=== PATIENT | female | born 1960 | race Caucasian/White ===

== ENCOUNTER → 2025-01-18 13:45 | Observation (INO) ==
--- NOTE | 2025-01-16 15:28 | PCM ---
Date of Service Date Seen by Provider: 01/16/25 Time Seen by Provider: 15:30 Admit Day/Time Admission Date: 01/28/25 Admission Time: 15:22 Reason for Admission Chief Complaint: UTI Hospital Provider Hospital Provider: KRYSTIAN ADDISON PA-C, [facility] Primary Care Physician Primary Care Physician: ANDRIA CRUZ PA-C History of Present Illness History of Present Illness: Patient is a 64 year old female who presents as a direct admit from PCP Andria Cruz's office for UTI, failed outpatient antibiotic treatment. She has been dealing with UTI symptoms, was treated with bactrim. Urine culture grew e coli resistant to bactrim. She was given rocephin inj IM on 01/15 and 01/16, but continues to have flank pain, nausea, and overall not feeling well. Feels as though she's dehydrated. Has been septic in the past from UTI and patient's worried about that. Patient admitted to med surg. Case Discussed With Case Discussed With: Patient's case was discussed with PCP Andria Cruz. [facility] Medical History Kidney disease N28.9 - Disorder of kidney and ureter, unspecified (ICD-10) Pain of right shoulder joint on movement M25.511 - Pain in right shoulder (ICD-10) Right ear pain H92.01 - Otalgia, right ear (ICD-10) Tongue lesion K14.8 - Other diseases of tongue (ICD-10) Carpal tunnel syndrome, bilateral G56.03 - Carpal tunnel syndrome, bilateral upper limbs (ICD-10) Overactive bladder N32.81 - Overactive bladder (ICD-10) Surgical History H/O dilation and curettage postmenopausal bleeding Jun 2023 Z98.890 - Other specified postprocedural states (ICD-10) History of carpal tunnel release Z98.890 - Other specified postprocedural states (ICD-10) History of cholecystectomy Z90.49 - Acquired absence of other specified parts of digestive tract (ICD- 10) History of bilateral knee replacement Z96.653 - Presence of artificial knee joint, bilateral (ICD-10) Family History FATHER Colon cancer MATERNAL GRANDMOTHER Breast cancer Diabetes MATERNAL GRANDMOTHER No problems noted. Mother COPD (chronic obstructive pulmonary disease) Heart problem Family history of thyroid problem AUNT Breast cancer SISTER Family history of thyroid problem Social History Smoking and tobacco status: Never smoker Passive smoking exposure: Yes (around vapers) Second hand smoke exposure: Yes Alcohol intake: current Alcohol intake frequency: 0-2 drinks per day Counseling given: No Counseling provided: none Substance use type: does not use Rubi/pentecostalism: OTHER Household members: none Housing: house Marital status: S SINGLE Lives independently: Yes Number of children: 2 Number of grandchildren: 1 Highest education level completed: Bachelor's degree service: No [facility]: No Current occupational status: retired Pets and animals: No History of recent travel: Yes (within the [place]) Sexually active: Yes Do you think of yourself as: straight/heterosexual Current gender identity: female Seatbelt use: always Helmet use: Yes Drives intoxicated or rides with intoxicated pole truck driver: No Water heater temperature set < 120 degrees: Yes Working smoke detector in home: Yes Fire extinguisher in home: Yes Carbon monoxide detector in home: Yes Firearms in home: No Allergies Allergies Allergy/AdvReac Type Severity Reaction Status Date / Time ciprofloxacin (From Cipro) AdvReac Unknown Verified 01/16/25 14:02 Current Medications Home Medications Acetaminophen (Acetaminophen 325 Mg Tablet) 650 mg PO Q4H PRN PRN Reason: Mild Pain Last Admin: 01/17/25 02:14 Dose: 650 mg Buspirone HCl (Buspirone Hcl 10 Mg Tablet) 10 mg PO TID PRN PRN Reason: Anxiety Last Admin: 01/16/25 20:23 Dose: 10 mg CEFTRIAXONE/D5W 1 GM PREMIX (Rocephin 1 Gm/50 Ml D5w) 1 gm in 50 mls @ 100 mls/hr IV DAILY RILEY Stop: 01/20/25 08:59 Last Admin: 01/17/25 08:42 Dose: 100 mls/hr Lactated Ringer's (Lactated Ringers) 1,000 mls @ 100 mls/hr IV .Q10H [facility] Last Admin: 01/17/25 04:55 Dose: 100 mls/hr Omeprazole (Omeprazole 20 Mg Capsule.Dr) 20 mg PO QDAC2 [facility] Last Admin: 01/17/25 05:04 Dose: 20 mg Ondansetron HCl (Ondansetron Hcl/Pf 4 Mg/2 Ml Sdv) 4 mg IVP Q6H PRN PRN Reason: Nausea / Vomiting Oxybutynin Chloride (Oxybutynin Chloride 5 Mg Tablet) 5 mg PO DAILY [facility] Last Admin: 01/17/25 08:43 Dose: 5 mg Sertraline HCl (Sertraline Hcl 50 Mg Tablet) 50 mg PO DAILY [facility] Last Admin: 01/17/25 08:43 Dose: 50 mg cyclobenzaprine 10 mg tablet 10 mg PO TID PRN muscle spasm #30 tabs 05/25/23 [Rx Confirmed 01/16/25] meclizine 25 mg tablet 25 mg PO Q6-8H PRN dizziness #30 tabs 05/30/23 [Rx Confirmed 01/16/25] omeprazole 20 mg capsule,delayed release 20 mg PO QDAY #90 caps 02/08/24 [Rx Confirmed 01/16/25] rosuvastatin 10 mg tablet 10 mg PO Q OTHER DAY #90 tabs 02/18/24 [Rx Confirmed 01/16/25] Held on 08/19/24. Instructions: Adverse Reaction meloxicam 15 mg tablet See Rx Instructions .Route .COMPLEX #90 tabs 05/15/24 [Rx Confirmed 01/16/25] Held on 11/26/24. Instructions: MD Howell sertraline 50 mg tablet See Rx Instructions .Route .COMPLEX #90 tabs 05/15/24 [Rx Confirmed 01/16/25] oxybutynin chloride 5 mg tablet 5 mg PO QDAY #90 tabs 08/15/24 [Rx Confirmed 01/16/25] lisinopril 20 mg-hydrochlorothiazide 25 mg tablet 1 tab PO QDAY #90 tabs 08/19/24 [Rx Confirmed 01/16/25] phentermine 37.5 mg capsule 37.5 mg PO QDAY #30 caps 01/13/25 [Rx Confirmed 01/16/25] buspirone 10 mg tablet 10 mg PO TID PRN anxiety 01/16/25 [History Confirmed 01/16/25] Opioid Naive vs. Tolerant Does Patient Take Opioids?: No Is Patient Opioid Naive?: Yes What is Opioid Naive?: *Opioid Naive implies the patient is not already taking opioids or not chronically receiving opioids on a daily basis. *PRN dosing is not "usually" associated with tolerance. *Patients are at higher risk of over-sedation and aspiration. Is Patient Opioid Tolerant?: No What is Opioid Tolerant?: *Opioid Tolerance implies less than the expected response to an opioid. *Acquired tolerance is defined by the patient taking 60mg of oral morphine daily (or equianalgesic dose of another opioid) for 1 week or more. *Often associated with chronic pain. *May take more than usual dose to achieve desired pain control. Review of Systems Constitutional: Reports Fatigue; Denies Fever Head: Reports Normocephalic and Atraumatic Cardiovascular: Denies Chest pain, Edema or Palpitations Respiratory: Denies Cough or Shortness of air Gastrointestinal: Reports Nausea and Other; Denies Vomiting, Diarrhea or Abdominal pain Genitourinary: Reports Dysuria, Frequency and Flank Pain Neurological: Reports Headache and Dizziness; Denies Syncope Physical examination Appearance: Positive No Apparent Distress and Alert and Oriented x3 Skin: Positive [place], Warm, Good Turgor and Good Color HEENT: Positive Normocephalic and Atraumatic; Negative Oral Mucous Moist Neck: Positive Supple and Midline Trachea Chest/Lungs: Positive Clear to Auscultation Bilaterally; Negative Rales, Rhonci or Wheezes Heart: Positive RRR GI/: Positive Soft, Nontender, Bowel Sounds Normal, No Distention and Other (+marcial flank pain ) Extremities: Negative Edema Neurological: Positive Cranial Nerves Intact, Alert, Oriented and Muscle Strength 5/5 in Upper and Lower Extremities Bilaterally Psychiatric: Positive Oriented x4, Appropriate Mood and Appropriate Affect Labs This Visit Labs This Visit: Labs This Visit 01/16/25 01/17/25 15:40 05:06 WBC 9.60 6.97 RBC 4.30 3.96 L Hgb 13.0 12.0 Hct 39.8 37.6 MCV 92.6 94.9 MCH 30.2 30.3 MCHC 32.7 31.9 RDW Coeff of Isatu 13.3 13.2 Plt Count 278 222 Immature Gran % (Auto) 0.3 0.3 Neut % (Auto) 69.9 63.5 Lymph % (Auto) 21.6 27.0 [place] % (Auto) 6.7 6.9 Eos % (Auto) 0.9 1.7 Baso % (Auto) 0.6 0.6 Neut # (Auto) 6.7 4.4 Lymph # (Auto) 2.1 1.9 [place] # (Auto) 0.6 0.5 Eos # (Auto) 0.1 0.1 Baso # (Auto) 0.1 0.0 Immature Gran # (Auto) 0.0 0.0 Sodium 136.9 139.2 Potassium 4.15 4.48 Chloride 101.3 105.2 Carbon Dioxide 24.8 27.6 Anion Gap 14.95 10.88 BUN 34.6 H 29.6 H Creatinine 2.20 H 1.88 H Estimated GFR (MDRD) 22.00 27.00 BUN/Creatinine Ratio 15.72 15.74 Glucose 101.9 94.9 Lactic Acid 0.82 Calcium 9.76 9.09 Magnesium 1.89 Total Bilirubin 0.40 0.35 AST 29.5 25.1 ALT 25.9 23.6 Alkaline Phosphatase 80.6 74.3 Total Protein 7.82 6.55 Albumin 4.71 3.98 Globulin 3.11 2.57 Albumin/Globulin Ratio 1.51 1.54 Procalcitonin < 0.05 Review Statement Review Statement: I have independently reviewed and interpreted the labs/EKGs/imaging that were ordered by the ER provider. I have reviewed all outside records that are available currently in our EMR including imaging/notes/labs from previous visits. Plan Plan: 1. Acute pyelonephritis due to E coli - Failed outpatient abx. With nausea, flank pain, and evidence of UTI, meets criteria. Cont rocephin based off culture. Pain control. Fluids. LA and procal negative. 2. DUANE, stage I - Baseline Cr 1 or less. LR ordered. Hold lisinopril/hctz 3. Hypertension - hold lisinopril/hctz 4. Depression/anxiety - Cont home meds DVT Prophylaxis: Ambulation Time Spent: Greater than 80 minutes spent with patient, 50% of the time spent with this patient was devoted to counseling and coordination of care. [facility] minutes spent discussing advance care planning. Admit to: Obs Discussed Plan of Care with Dr. Nithya Blanchard. Medications Medication Orders: Medications Ordered Category Date Time Status Acetaminophen [Tylenol] Meds 01/16/25 15:22 Ordered 650 mg PO Q4H PRN Ceftriaxone/D5w 1 gm Premix [Rocephin 1 gm/50 ml D5w] Meds 01/17/25 09:00 Active 1 gm in 50 ml IV DAILY Ondansetron HCl/Pf [Zofran Sdv] Meds 01/16/25 15:22 Ordered 4 mg IVP Q6H PRN Ringers Lactated Solution [Lactated Ringers] 1,000 ml Meds 01/16/25 15:30 Active IV 100 mls/hr
[2025-01-16 15:43] LABS: IMMATURE GRANULOCYTE # (AUTO) 0.0 (0.0-1.0); IMMATURE GRANULOCYTE % (AUTO) 0.3 % (0.0-5.0); RDW COEFFICIENT OF VARIATION 13.3 % (11.6-14.8)
[2025-01-16 15:52] VITALS: BMI 42.5
[2025-01-16 15:56] LABS: CREATININE 2.2 mg/dL (0.60-1.30)
[2025-01-16] MEDS: LACTATED RINGERS 1,000 ML IV SCH (16:05)
[2025-01-16] MEDS: LACTATED RINGERS 1,000 ML IV ONE (18:00)
[2025-01-16] MEDS: TYLENOL PO PRN (18:21)
[2025-01-16] MEDS: BUSPAR PO PRN (20:23)
[2025-01-17] MEDS: PRILOSEC PO SCH (05:04)
[2025-01-17 05:30] LABS: IMMATURE GRANULOCYTE # (AUTO) 0.0 (0.0-1.0); IMMATURE GRANULOCYTE % (AUTO) 0.3 % (0.0-5.0); RDW COEFFICIENT OF VARIATION 13.2 % (11.6-14.8)
[2025-01-17 05:45] LABS: CREATININE 1.88 mg/dL (0.60-1.30)
[2025-01-17] MEDS: TORADOL IVP ONE (07:54)
[2025-01-17] MEDS: ROCEPHIN 1 GM/50 ML D5W 1 GM/50 ML BAG IV SCH (08:42)
[2025-01-17] MEDS: ZOLOFT PO SCH (08:43)
[2025-01-17] MEDS: DITROPAN PO SCH (08:43)
--- NOTE | 2025-01-17 10:52 | PCM.PROG ---
Date/Time Seen Date Seen by Provider: 01/17/25 Time Seen by Provider: 09:30 Provider Provider: [facility]STIAN ADDISON [facility]-C, [facility] Chief Complaint Chief Complaint: UTI Subjective Subjective: Patient feels better overall today. Still having some flank pain. Tolerating PO. Had a headache this AM. Cr not yet to baseline. Objective Appearance: Positive No Apparent Distress and Alert and Oriented x3 Chest/Lungs: Positive Clear to Auscultation Bilaterally; Negative Rales, Rhonci or Wheezes Heart: Positive RRR GI/: Positive Soft, Nontender, Bowel Sounds Normal, No Distention and Other (+mild marcial cva tenderness ) Neurological: Positive Cranial Nerves Intact, Alert, Oriented, Disorinted and Muscle Strength 5/5 in Upper and Lower Extremities Bilaterally Vital Signs Vital Signs: Vital Signs: Last 24 Hours 01/16/25 15:28 01/16/25 15:36 01/16/25 16:00 Temperature 97.9 F Temperature Source Oral Pulse Rate 71 Pulse Rate [Radial] Respiratory Rate 16 Blood Pressure Blood Pressure Mean Blood Pressure Left Arm 131/81 Blood Pressure Location Blood Pressure Position Sitting O2 Sat by Pulse Oximetry Oxygen Delivery Method Room Air Room Air Height 5 ft 6 in 5 ft 6 in Weight 119.6 kg 119.6 kg Telemetry Type Telemetry Monitoring Irregular Telemetry Rate (Approximate) Telemetry Heart Rate EKG OH Interval EKG QRS Interval Telemetry Strip Reading 01/16/25 16:10 01/16/25 16:29 01/16/25 17:00 Temperature Temperature Source Pulse Rate Pulse Rate [Radial] 72 Respiratory Rate 16 Blood Pressure Blood Pressure Mean Blood Pressure Left Arm Blood Pressure Location Blood Pressure Position O2 Sat by Pulse Oximetry Oxygen Delivery Method Room Air Room Air Height Weight Telemetry Type Remote Telemetry Telemetry Monitoring Started Irregular Telemetry Rate (Approximate) 60's Telemetry Heart Rate EKG OH Interval 0.16 EKG QRS Interval 0.07 Telemetry Strip Reading NSR 01/16/25 17:40 01/16/25 18:00 01/16/25 19:00 Temperature 96.9 F L Temperature Source Temporal Artery Scan Pulse Rate 72 Pulse Rate [Radial] Respiratory Rate 18 Blood Pressure 131/96 H Blood Pressure Mean 107 Blood Pressure Left Arm Blood Pressure Location Right Arm Blood Pressure Position Supine O2 Sat by Pulse Oximetry 100 Oxygen Delivery Method Room Air Room Air Room Air Height Weight Telemetry Type Telemetry Monitoring Irregular Telemetry Rate (Approximate) Telemetry Heart Rate EKG OH Interval EKG QRS Interval Telemetry Strip Reading 01/16/25 19:00 01/16/25 20:00 01/16/25 20:00 Temperature Temperature Source Pulse Rate Pulse Rate [Radial] Respiratory Rate Blood Pressure Blood Pressure Mean Blood Pressure Left Arm Blood Pressure Location Blood Pressure Position O2 Sat by Pulse Oximetry Oxygen Delivery Method Room Air Room Air Height Weight Telemetry Type Remote Telemetry Telemetry Monitoring Continues Irregular Telemetry Rate (Approximate) Telemetry Heart Rate 71 EKG OH Interval 0.17 EKG QRS Interval 0.06 Telemetry Strip Reading SR 01/16/25 20:00 01/16/25 20:48 01/16/25 21:00 Temperature 97.2 F L Temperature Source Temporal Artery Scan Pulse Rate 73 Pulse Rate [Radial] Respiratory Rate 22 H Blood Pressure 151/65 H Blood Pressure Mean 93 Blood Pressure Left Arm Blood Pressure Location Right Arm Blood Pressure Position Sitting O2 Sat by Pulse Oximetry 100 Oxygen Delivery Method Room Air Room Air Room Air Height Weight Telemetry Type Telemetry Monitoring Irregular Telemetry Rate (Approximate) Telemetry Heart Rate EKG OH Interval EKG QRS Interval Telemetry Strip Reading 01/16/25 22:00 01/16/25 23:00 01/17/25 00:00 Temperature Temperature Source Pulse Rate Pulse Rate [Radial] Respiratory Rate Blood Pressure Blood Pressure Mean Blood Pressure Left Arm Blood Pressure Location Blood Pressure Position O2 Sat by Pulse Oximetry Oxygen Delivery Method Room Air Room Air Room Air Height Weight Telemetry Type Telemetry Monitoring Irregular Telemetry Rate (Approximate) Telemetry Heart Rate EKG OH Interval EKG QRS Interval Telemetry Strip Reading 01/17/25 01:00 01/17/25 01:00 01/17/25 02:00 Temperature Temperature Source Pulse Rate Pulse Rate [Radial] Respiratory Rate Blood Pressure Blood Pressure Mean Blood Pressure Left Arm Blood Pressure Location Blood Pressure Position O2 Sat by Pulse Oximetry Oxygen Delivery Method Room Air Room Air Height Weight Telemetry Type Remote Telemetry Telemetry Monitoring Continues Irregular Telemetry Rate (Approximate) Telemetry Heart Rate 74 EKG OH Interval 0.16 EKG QRS Interval 0.06 Telemetry Strip Reading SR 01/17/25 02:00 01/17/25 03:00 01/17/25 04:00 Temperature 97.7 F Temperature Source Temporal Artery Scan Pulse Rate 63 Pulse Rate [Radial] Respiratory Rate 18 Blood Pressure 158/89 H Blood Pressure Mean 112 Blood Pressure Left Arm Blood Pressure Location Right Arm Blood Pressure Position Supine O2 Sat by Pulse Oximetry 100 Oxygen Delivery Method Room Air Room Air Room Air Height Weight Telemetry Type Telemetry Monitoring Irregular Telemetry Rate (Approximate) Telemetry Heart Rate EKG OH Interval EKG QRS Interval Telemetry Strip Reading 01/17/25 05:00 01/17/25 05:30 01/17/25 06:00 Temperature 97.3 F L Temperature Source Temporal Artery Scan Pulse Rate 71 Pulse Rate [Radial] Respiratory Rate 20 Blood Pressure 148/87 H Blood Pressure Mean 107 Blood Pressure Left Arm Blood Pressure Location Right Arm Blood Pressure Position Supine O2 Sat by Pulse Oximetry 100 Oxygen Delivery Method Room Air Room Air Room Air Height Weight Telemetry Type Telemetry Monitoring Irregular Telemetry Rate (Approximate) Telemetry Heart Rate EKG OH Interval EKG QRS Interval Telemetry Strip Reading 01/17/25 07:00 01/17/25 07:00 01/17/25 08:00 Temperature Temperature Source Pulse Rate Pulse Rate [Radial] Respiratory Rate Blood Pressure Blood Pressure Mean Blood Pressure Left Arm Blood Pressure Location Blood Pressure Position O2 Sat by Pulse Oximetry Oxygen Delivery Method Room Air Room Air Height Weight Telemetry Type Remote Telemetry Telemetry Monitoring Continues Irregular Telemetry Rate (Approximate) 60-70 BPM Telemetry Heart Rate 64 EKG OH Interval 0.17 EKG QRS Interval 0.07 Telemetry Strip Reading NSR 01/17/25 08:00 01/17/25 08:57 01/17/25 09:50 Temperature Temperature Source Pulse Rate Pulse Rate [Radial] Respiratory Rate Blood Pressure Blood Pressure Mean Blood Pressure Left Arm Blood Pressure Location Blood Pressure Position O2 Sat by Pulse Oximetry Oxygen Delivery Method Room Air Room Air Room Air Height Weight Telemetry Type Telemetry Monitoring Irregular Telemetry Rate (Approximate) Telemetry Heart Rate EKG OH Interval EKG QRS Interval Telemetry Strip Reading 01/17/25 09:50 Temperature 97.6 F Temperature Source Temporal Artery Scan Pulse Rate 64 Pulse Rate [Radial] Respiratory Rate 16 Blood Pressure 141/89 H Blood Pressure Mean 106 Blood Pressure Left Arm Blood Pressure Location Right Arm Blood Pressure Position Supine O2 Sat by Pulse Oximetry 100 Oxygen Delivery Method Room Air Height Weight Telemetry Type Telemetry Monitoring Irregular Telemetry Rate (Approximate) Telemetry Heart Rate EKG OH Interval EKG QRS Interval Telemetry Strip Reading Lab Results Lab Results: Lab Results: Last 24 Hours 01/17/25 01/16/25 05:06 15:40 WBC 6.97 9.60 RBC 3.96 L 4.30 Hgb 12.0 13.0 Hct 37.6 39.8 MCV 94.9 92.6 MCH 30.3 30.2 MCHC 31.9 32.7 RDW Coeff of Isatu 13.2 13.3 Plt Count 222 278 Immature Gran % (Auto) 0.3 0.3 Neut % (Auto) 63.5 69.9 Lymph % (Auto) 27.0 21.6 [place] % (Auto) 6.9 6.7 Eos % (Auto) 1.7 0.9 Baso % (Auto) 0.6 0.6 Neut # (Auto) 4.4 6.7 Lymph # (Auto) 1.9 2.1 [place] # (Auto) 0.5 0.6 Eos # (Auto) 0.1 0.1 Baso # (Auto) 0.0 0.1 Immature Gran # (Auto) 0.0 0.0 Sodium 139.2 136.9 Potassium 4.48 4.15 Chloride 105.2 101.3 Carbon Dioxide 27.6 24.8 Anion Gap 10.88 14.95 BUN 29.6 H 34.6 H Creatinine 1.88 H 2.20 H Estimated GFR (MDRD) 27.00 22.00 BUN/Creatinine Ratio 15.74 15.72 Glucose 94.9 101.9 Lactic Acid 0.82 Calcium 9.09 9.76 Magnesium 1.89 Total Bilirubin 0.35 0.40 AST 25.1 29.5 ALT 23.6 25.9 Alkaline Phosphatase 74.3 80.6 Total Protein 6.55 7.82 Albumin 3.98 4.71 Globulin 2.57 3.11 Albumin/Globulin Ratio 1.54 1.51 Procalcitonin < 0.05 Additional Comments Additional Comments: I have independently reviewed and interpreted the labs/EKGs/imaging ordered during this hospital stay. I have reviewed outside records that are available in our EMR that pertain to medical stay including imaging/notes/labs from previous visits. Active Medications Active Medications: Medications Generic Name Dose Route Start Last Admin Trade Name Freq PRN Reason Stop Dose Admin Acetaminophen 650 mg 01/16/25 15:22 01/17/25 02:14 Acetaminophen 325 Mg Tablet PO 650 mg Q4H PRN Administration Mild Pain Buspirone HCl 10 mg 01/16/25 16:55 01/16/25 20:23 Buspirone Hcl 10 Mg Tablet PO 10 mg TID PRN Administration Anxiety CEFTRIAXONE/D5W 1 GM PREMIX 1 gm in 50 mls @ 100 mls/hr 01/17/25 09:00 01/17/25 08:42 Rocephin 1 Gm/50 Ml D5w IV 01/20/25 08:59 100 mls/hr DAILY RILEY Administration Lactated Ringer's 1,000 mls @ 100 mls/hr 01/16/25 15:30 01/17/25 04:55 Lactated Ringers IV 100 mls/hr .Q10H RILEY Administration Omeprazole 20 mg 01/17/25 06:00 01/17/25 05:04 Omeprazole 20 Mg Capsule. PO 20 mg QDAC2 RILEY Administration Ondansetron HCl 4 mg 01/16/25 15:22 Ondansetron Hcl/Pf 4 Mg/2 Ml Sdv IVP Q6H PRN Nausea / Vomiting Oxybutynin Chloride 5 mg 01/17/25 09:00 01/17/25 08:43 Oxybutynin Chloride 5 Mg Tablet PO 5 mg DAILY RILEY Administration Sertraline HCl 50 mg 01/17/25 09:00 01/17/25 08:43 Sertraline Hcl 50 Mg Tablet PO 50 mg DAILY RILEY Administration Plan Plan: 1. Acute pyelonephritis due to E coli - Failed outpatient abx. With nausea, flank pain, and evidence of UTI, meets criteria. Had a CT in last few weeks with no evidence of stones at that time. Cont rocephin based off culture. Pain control. Fluids. LA and procal negative. 2. DUANE, stage I - Improved but not yet at baseline. Baseline Cr 1 or less. LR ordered. Hold lisinopril/hctz 3. Hypertension - hold lisinopril/hctz 4. Depression/anxiety - Cont home meds Dispo: Requiring 2nd midnight, will make inpatient today DVT: Ambulation Review Statement Review Statement: I have personally discussed and reviewed the patient's visit/currently labs/imaging/decision making with Dr. Blanchard, my supervising attending. Greater that 50 minutes spent with patient, 50% of the time spent with this patient was devoted to counseling and coordination of care.
[2025-01-18 05:44] LABS: IMMATURE GRANULOCYTE # (AUTO) 0.0 (0.0-1.0); IMMATURE GRANULOCYTE % (AUTO) 0.3 % (0.0-5.0); RDW COEFFICIENT OF VARIATION 12.8 % (11.6-14.8)
[2025-01-18 05:57] LABS: CREATININE 1.38 mg/dL (0.60-1.30)
[2025-01-18] MEDS: COLACE PO PRN (09:02)
[2025-01-18 10:44] VITALS: BP 149/94; PULSE 66; RESP 16; TEMP 97.4
--- NOTE | 2025-01-18 10:45 | DCSUM ---
Admission Date Admission Date: 01/16/25 Discharge Date Discharge Date: 01/18/25 Admission Diagnosis Admission Diagnosis: 1. Acute pyelonephritis due to E coli 2. DUANE, stage I Discharge Diagnosis Discharge Diagnosis: 1. Acute pyelonephritis due to E coli - resolved 2. DUANE, stage I - improved 3. Hypertension 4. Depression/anxiety Hospital Provider Hospital Provider: KRYSTIAN ADDISON PA-C, [facility] [place] Phys[place] Primary Care Physician: ANDRIA CRUZ PA-C Summary of History and Physical Summary of History and Physical: Patient is a 64 year old female who presents as a direct admit from PCP Andria Cruz's office for UTI, failed outpatient antibiotic treatment. She has been dealing with UTI symptoms, was treated with bactrim. Urine culture grew e coli resistant to bactrim. She was given rocephin inj IM on 01/15 and 01/16, but continues to have flank pain, nausea, and overall not feeling well. Feels as though she's dehydrated. Has been septic in the past from UTI and patient's worried about that. Patient admitted to med surg. Hospital Course Subjective: Patient was continued on rocephin. Fluids continued. Cr has improved, almost to baseline. GFR and BUN improving. Patient very anxious about her renal function. Gave option of staying another night for continued fluids but she would like to go home. Discussed pushing fluids at home. With stopping bactrim, pushing fluids, her renal function should return to her baseline. She will call her pcp in AM for f/u apt this week to recheck. Will send in 3 more days of cefpodoxime to start tomorrow morning. Hold meloxicam. Restart BP medications. We discussed talking with pcp about new urology referral as it's been over a year since she saw uro and continues to have UTIs. Discussed possibility of vaginal dryness contributing as she is post menopausal, something to discuss with uro. Patient agrees to plan of care. Appearance: Pleasant, No Apparent Distress and Alert HEENT: MMM and Supple CVS: Other (RRR) Abdomen: Soft, Non-Tender and No Distention Respiratory: No Accessory Muscle Use Extremities: No Edema Vital Signs: Most Recent Vital Signs Temperature 97.4 F L 01/18/25 10:00 Temperature Source Temporal Artery Scan 01/18/25 10:00 Pulse Rate 66 08/24/25 10:00 Respiratory Rate 16 01/18/25 10:00 Blood Pressure 149/94 H 01/18/25 10:00 Blood Pressure Mean 112 01/18/25 10:00 Blood Pressure Left Arm 131/81 01/16/25 15:28 Blood Pressure Location Left Arm 01/18/25 10:00 Blood Pressure Position Sitting 01/18/25 10:00 O2 Sat by Pulse Oximetry 98 01/18/25 10:00 Oxygen Delivery Method Room Air 01/18/25 10:00 Height 5 ft 6 in 01/16/25 15:36 Weight 119.6 kg 01/16/25 15:36 Telemetry Type Remote Telemetry 01/18/25 07:00 Telemetry Monitoring Discontinued 01/18/25 07:00 Irregular Telemetry Rate (Approximate) 60-70 BPM 01/17/25 13:00 Telemetry Heart Rate 62 01/18/25 07:00 EKG MN Interval 0.16 01/18/25 07:00 EKG QRS Interval 0.06 01/18/25 07:00 Telemetry Strip Reading SR 01/18/25 07:00 Lab Results Last 24 Hours: 01/18/25 05:25 WBC 6.53 RBC 3.68 L Hgb 11.2 L Hct 35.2 L MCV 95.7 MCH 30.4 MCHC 31.8 RDW Coeff of Isatu 12.8 Plt Count 198 Immature Gran % (Auto) 0.3 Neut % (Auto) 62.0 Lymph % (Auto) 29.9 Stevens % (Auto) 6.0 Eos % (Auto) 1.5 Baso % (Auto) 0.3 Neut # (Auto) 4.1 Lymph # (Auto) 2.0 Stevens # (Auto) 0.4 Eos # (Auto) 0.1 Baso # (Auto) 0.0 Immature Gran # (Auto) 0.0 Sodium 138.6 Potassium 4.34 Chloride 107.1 H Carbon Dioxide 25.2 Anion Gap 10.64 BUN 24.8 H Creatinine 1.38 H D Estimated GFR (MDRD) 38.00 BUN/Creatinine Ratio 17.97 Glucose 98.1 Calcium 8.95 Total Bilirubin 0.32 AST 23.2 ALT 22.2 Alkaline Phosphatase 74.0 Total Protein 6.26 L Albumin 3.70 Globulin 2.56 Albumin/Globulin Ratio 1.44 Discharge Instructions Discharge Planning: Discharge Planning > [address] Nithya Blanchard. Discharge Medications: Medications at Discharge (Home Meds & RX) meclizine 25 mg tablet 25 mg PO Q6-8H PRN dizziness #30 tabs 05/30/23 omeprazole 20 mg capsule,delayed release 20 mg PO QDAY #90 caps 02/08/24 sertraline 50 mg tablet See Rx Instructions .Route .COMPLEX #90 tabs 05/15/24 oxybutynin chloride 5 mg tablet 5 mg PO QDAY #90 tabs 08/15/24 lisinopril 20 mg-hydrochlorothiazide 25 mg tablet 1 tab PO QDAY #90 tabs 08/19/24 buspirone 10 mg tablet 10 mg PO TID PRN anxiety 01/16/25 cefpodoxime 200 mg tablet 200 mg PO BID 3 days #6 tabs 01/18/25 Discharge Plan Discharge Discharge Orders: Discharge Patient (ONCE); Ordered 01/18/25 Ordered By: KRYSTIAN ADDISON Activity Restrictions/Additional Instructions: DISCHARGE TO HOME DX: DUANE, UTI PHARMACY: [facility], START TOMORROW 01/19 FOLLOW UP WITH PCP THIS WEEK TO RECHECK LABS PUSH FLUIDS Patient Disposition: HOME SELF-CARE Prescriptions: New cefpodoxime 200 mg Tablet 200 mg PO BID 3 Days Qty: 6 0RF Rx Instructions: must administer with a meal/food cefpodoxime 200 mg tablet 200 mg PO BID 3 Days Qty: 6 0RF Rx Instructions: must administer with a meal/food Continued meclizine 25 mg tablet 25 mg PO Q6-8H PRN (Reason: dizziness) Qty: 30 0RF Rx Instructions: Alternatively may take 50mg (2 tabs) every 12 hours. Max 100mg/24 hours. sertraline 50 mg tablet See Rx Instructions .ROUTE .COMPLEX Qty: 90 2RF Dose Instruction: Take 1 tablet by mouth once daily Rx Instructions: Take 1 tablet by mouth once daily oxybutynin chloride 5 mg tablet 5 mg PO QDAY Qty: 90 3RF lisinopril-hydrochlorothiazide 20-25 mg tablet 1 tab PO QDAY Qty: 90 1RF omeprazole 20 mg capsule,delayed release(DR/EC) 20 mg PO QDAY Qty: 90 1RF Discontinued cyclobenzaprine 10 mg tablet 10 mg PO TID PRN (Reason: muscle spasm) Qty: 30 0RF rosuvastatin 10 mg tablet 10 mg PO Q OTHER DAY Qty: 90 3RF meloxicam 15 mg tablet See Rx Instructions .ROUTE .COMPLEX Qty: 90 2RF Dose Instruction: Take 1 tablet by mouth once daily Rx Instructions: Take 1 tablet by mouth once daily phentermine 37.5 mg capsule 37.5 mg PO QDAY Qty: 30 0RF Rx Instructions: must administer 30 minutes before or 1-2 hours after breakfast No Action buspirone 10 mg tablet 10 mg PO TID PRN (Reason: anxiety) Did you review [place] [employer] for ALL controlled substances?: Not Applicable Discussed opioids are addictive and Narcan is available by prescription or from pharmacy.: No Condition: Stable
[2025-01-18 11:43] LABS: CREATININE 1.31 mg/dL (0.60-1.30)
[~2025-01-18 13:45] MED LIST: LACTATED RINGERS 1,000 ML IV SCH; TORADOL IVP PRN; ZOFRAN SDV IVP PRN
== END | disposition home or self-care (01) ==
LOC: MEDSURG B
PROVIDERS: ADMIT Hospitalist; ATTEND Physician Assistant